=== PATIENT | female | born 1990 | race African-American/Black ===

== ENCOUNTER 2017-09-15 05:17 | Emergency (ER) | payer OTHER ==
[~2017-09-15] VITALS: Ht 170.2 cm; Wt 66.0 kg
[2017-09-15 05:45] VITALS: BP 127/73
== END 2017-09-15 05:55 | disposition left against medical advice (07) ==
LOC: EDBD 05:17 → ER 05:49
DX: R07.9 Chest pain, unspecified (principal); Z53.21 Procedure and treatment not carried out due to patient leaving prior to being seen by health care provider
CPT/HCPCS: 93005